=== PATIENT | male | born 1975 | race Two or more races ===

== ENCOUNTER 2022-06-19 16:47 | Emergency (ER) | payer OTHER ==
[~2022-06-19] VITALS: Ht 172.7 cm; Wt 72.6 kg
== END 2022-06-19 19:02 | disposition home or self-care (01) ==
LOC: ER 16:47
DX: S51.012A Laceration without foreign body of left elbow, initial encounter (principal); W45.8XXA Other foreign body or object entering through skin, initial encounter; Y93.89 Activity, other specified; Y92.59 Other trade areas as the place of occurrence of the external cause; Y99.9 Unspecified external cause status